=== PATIENT | female | born 1970 | race Caucasian/White ===

== ENCOUNTER 2018-04-10 18:45 | Inpatient (IN) ==
--- NOTE | 2018-04-10 20:28 | ED ---
HPI General Chief Complaint: Psychiatric Symptoms Stated Complaint: Psych eval/Transfer Time Seen by Provider: 04/10/18 19:21 Source: patient, EMS and other Mode of arrival: EMS Limitations: no limitations History of Present Illness HPI Narrative: Patient is a 47-year-old female with history of PTSD, bipolar disorder, COPD, diabetes, who presents with complaint of suicidal ideation. She was admitted 5 weeks ago after an intentional overdose on her lithium. She presented to an outside facility today with complaint of suicidal ideation. They obtained a CBC, CMP, alcohol level, UDS, acetaminophen and salicylate levels all of which were unremarkable. She was then sent here to be seen by psychiatry. No chest pain, dyspnea, abdominal pain, fever, chills, recent trauma, headache. No numbness, weakness. She does admit to chronic pain in the L foot that is unchanged and began when she fractured it several years ago. complaint: Reports suicidal ideation and feels depressed Onset (ago): day(s) Duration: constant History of same: Yes Relieving factors: none Exacerbating factors: none Context: Reports recent drug abuse and not taking psychiatric medications Associated psychiatric symptoms: Reports depression and suicidal ideation Associated symptoms: Reports denies other symptoms Treatments prior to arrival: Reports placed on mental health hold If self harm: admits thoughts of self harm and has plan Related Data Home Medications Medication Instructions Recorded Confirmed albuterol sulfate [Ventolin HFA] 2 puff INHALATION Q6H PRN 04/10/18 04/10/18 gabapentin 300 mg PO TID 04/10/18 04/10/18 lamotrigine [Lamictal] 150 mg PO HS 04/10/18 04/10/18 olanzapine [Zyprexa] 20 mg PO DAILY 04/10/18 04/10/18 paroxetine HCl [Paxil] 30 mg PO DAILY 04/10/18 04/10/18 saxagliptin [Onglyza] mg PO DAILY 04/10/18 Allergies Allergy/AdvReac Type Severity Reaction Status Date / Time aspirin Allergy Mild VOMITED Unverified 01/20/17 20:58 BLOOD Review of Systems ROS: all other systems reviewed are negative [facility] Medical History Medical History Asthma (Acute) Bipolar 1 disorder (Acute) Borderline personality disorder (Acute) COPD (chronic obstructive pulmonary disease) (Acute) Diabetes (Acute) PTSD (post-traumatic stress disorder) (Acute) Suicidal behavior with attempted self-injury (Acute) Surgical History Surgical History H/O rotator cuff surgery (Acute) H/O tubal ligation (Acute) Social History Social History Substance History: Active Abuse Smoking Status: Current every day smoker Tobacco Type: Cigarettes How Often Do You Have a Drink Containing Alcohol: Monthly or less Recent Travel in [facility] within the Last 8 Weeks: No Recent Out of Country Travel within the Last 8 Weeks: No Substance Abuse Detail Marijuana: Substance Use Status: Active Route Used Substance Abuse: Inhalation Crack/Cocaine: Substance Use Status: Active Route Used Substance Abuse: Inhalation Immunization History Tetanus Immunization: <5 Years Exam Narrative Exam Narrative: GENERAL: Well-appearing female that appears older than stated age SKIN: Focused skin assessment warm/dry. No rashes. HEAD: Atraumatic. Normocephalic. EYES: Pupils equal and round. No scleral icterus. No injection or drainage. ENT: No nasal bleeding or discharge. Mucous membranes pink and moist. NECK: Trachea midline. No JVD. CARDIOVASCULAR: Regular rate and rhythm. No murmur appreciated. Normal cap refill. Intact and equal peripheral pulses. RESPIRATORY: No accessory muscle use. Clear to auscultation. Breath sounds equal bilaterally. GASTROINTESTINAL: Abdomen soft, non-tender, nondistended. Hepatic and splenic margins not palpable. MUSCULOSKELETAL: No obvious deformities. No clubbing. No cyanosis. No edema. NEUROLOGICAL: Awake and alert. No obvious cranial nerve deficits. Motor within normal limits. Normal sensation. No ataxia. Normal speech. PSYCHIATRIC: Appropriate mood and affect; insight and judgment normal. Course Initial Documented Vital Signs Temperature 97.9 F 04/10/18 19:27 Pulse Rate 62 04/10/18 19:27 Respiratory Rate 14 04/10/18 19:27 Blood Pressure 97/53 L 04/10/18 19:27 Pulse Oximetry 97 04/10/18 19:27 Last Documented Vital Signs Temperature 97.9 F 04/10/18 19:27 Pulse Rate 62 04/10/18 19:27 Respiratory Rate 14 04/10/18 19:27 Blood Pressure 97/53 L 04/10/18 19:27 Pulse Oximetry 97 11/03/18 19:27 Medical Decision Making MDM Narrative Medical decision making narrative: Patient is a 47-year-old female transferred here for suicidal ideation under a Champion act. Most of the screening labs were done at the outside facility but the lithium was not done. Her lithium level was not high and that she has been medically cleared. She is awaiting psychiatric screening. Medical Screen Exam Complete: Yes Emergency Medical Condition: Yes Differential Diagnosis Differential Diagnosis: Differential diagnosis includes but is not limited to worsening depression, suicidal ideation, . Medical Records Medical records reviewed: Yes I reviewed the patient's medical records. Lab Data Lab results reviewed: Yes I reviewed the patient's lab results. POC Results POC Urine Results Negative Lab Results 04/10/18 Range/Units 19:40 Dequincy 0.2 L (0.5-1.5) meq/L Discharge Plan Discharge Disposition Patient Disposition: 30 Still Patient Discharge Condition Condition: Stable Discharge Details Diagnosis: Suicidal ideation Physicians Team ED Provider: Leela Champion Primary Care Provider: UNKNOWN, Rxs /Orders / Referrals /Forms Prescriptions: No Action lamotrigine [Lamictal] 150 mg Tablet 150 mg PO HS RF: 0 paroxetine HCl [Paxil] 30 mg Tablet 30 mg PO DAILY RF: 0 gabapentin 300 mg Capsule 300 mg PO TID RF: 0 albuterol sulfate [Ventolin HFA] 90 mcg/actuation Hfa Aerosol Inhaler 2 puff INHALATION Q6H PRN (Reason: Shortness Of Breath) RF: 0 saxagliptin [Onglyza] 2.5 mg Tablet PO DAILY RF: 0 olanzapine [Zyprexa] 20 mg Tablet 20 mg PO DAILY RF: 0 Status ED Status: Medically Cleared
[2018-04-10] MEDS ORDERED: Non-Formulary Drug (Albuterol Sulfate 2 PUFF) INHALATION PRN (22:37)
--- NOTE | 2018-04-11 10:26 | P.HPPSY ---
Provisional Diagnosis Admission Date: April 10, 2018 18:45 Witt I.: Bipolar depression, PTSD Witt II.: Borderline personality disorder Competence Certification of Person's Competence To Provide Express and Informed Consent I have personally examined Nita De Jesus, a [facility] on, April 11, 2018 1015. Express and informed consent means consent voluntarily given in writing, by a competent person, after sufficient explanation and disclosure of the subject matter involved to enable the person to make a knowing and willful decision without any element of force, fraud, deceit, duress, or other form of constraint or coercion. This person is 18 years of age or older, is not now known to be incompetent to consent to treatment with a guardian advocate, and does not have a health care surrogate or proxy currently making medical treatment decisions. I have found this person to be one of the following: [x] Competent to provide express and informed consent, as defined above, for voluntary admission to this facility and is competent to provide express and informed consent for treatment. He/she has the consistent capacity to make well reasoned, willful, and knowing decisions concerning his or her medical or mental health treatment. The person fully and consistently understands the purpose of the admission for examination/placement and is fully capable of personally exercising all rights assured [place] Incompetent to provide express and informed consent to voluntary admission, and this is incompetent to provide express and informed consent to treatment. The person must be transferred to involuntary status and a petition for a guardian advocate filed with the Circuit Court. [] Refusing to provide express and informed consent to voluntary admission but is competent to provide express and informed consent for treatment. The person must be discharged or transferred to involuntary status. Form shall be completed within 24 hours of a person's arrival at the receiving facility and filed in the clinical record of each person: 1. Admitted on a voluntary basis 2. Permitted to provide express and informed consent to his/her own treatment 3. Allowed to transfer from involuntary to voluntary status 4. Prior to permitting a person to consent to his or her own treatment after having been previously found incompetent to consent to treatment. History of Present Illness Capacity: Has capacity History of Present Illness: The patient is a 47-year-old woman, domiciled in [place] with a friend, , mother of 2 kids, unemployed, on SSI, with an extensive psychiatric history of bipolar disorder, PTSD, borderline personality disorder, cocaine and alcohol use disorder, numerous psychiatric hospitalizations, suicidal attempts, self-cutting behavior, noncompliant with medications, she is not in psychotropics at the moment, last hospitalization was a month ago for 5 weeks after overdosing with lithium, medical history of diabetes and COPD, who presents with complaint of suicidal ideation. She was transferred to [place] through the transfer center from [facility]. They obtained a CBC, CMP, alcohol level, UDS, acetaminophen and salicylate levels all of which were unremarkable. Chart was reviewed. The case was discussed with nursing charge. On my psychiatric evaluation the patient presents calm, superficially cooperative, very irritable. She reports that she has her best friend to take her to the hospital 2 days ago because she was feeling urges to kill herself. The patient reports that she has not been taking her medication for about a month now, but she has been using cocaine and alcohol sometimes, and in the last week she has been having persistent intrusive thoughts of hurting herself. The patient reports that she has been depressed, with frequent mood swings, increased sensitivity to criticism and rejection, fragile and vulnerable, and this is how I feel when I hurt myself, this is how I felt 5 weeks ago when I overdose with lithium. At this moment the patient reports suicidal ideation, she does not have any specific plan. She is interested in reestablishing contact with outpatient doctor and restarting her medications. The patient is logical, goal oriented, linear, oriented x3, without attention deficit, without fluctuation of consciousness. PPHx: psychiatric history of bipolar disorder, PTSD, borderline personality disorder, cocaine and alcohol use disorder, numerous psychiatric hospitalizations, suicidal attempts, self-cutting behavior, noncompliant with medications, she is not in psychotropics at the moment, last hospitalization was a month ago for 5 weeks after overdosing with lithium, PMHx: medical history of diabetes and COPD Substance Hx : Reports daily use of cocaine, occasional use of alcohol Family Hx: Her grandmother and an uncle have bipolar disease Social Hx: The patient was born and raised in [place]; she lives in [place] with a friend, , mother of 2 kids, unemployed, supported by [facility] . Review of Systems All other systems reviewed negative except as stated in HPI Psychiatric: Reports depression, Reports difficulty concentrating, Reports hopelessness, Reports irritability, Reports lack of enjoyment, Reports thoughts of hurting/killing yourself PMFSH - History History Provided By: Patient - Medical History Medical History: Medical History (Last Reviewed 04/10/18 @ 20:25 by Leela Champion MD) Asthma Bipolar 1 disorder Borderline personality disorder COPD (chronic obstructive pulmonary disease) Diabetes PTSD (post-traumatic stress disorder) Suicidal behavior with attempted self-injury - Surgical History Surgical History: Surgical History (Last Reviewed 04/10/18 @ 20:25 by Leela Champion MD) H/O rotator cuff surgery H/O tubal ligation - Tobacco History Tobacco Use In Past 30 Days: Yes Smoking Status: Current every day smoker Tobacco Type: Cigarettes - Alcohol History How Often Do You Have a Drink Containing Alcohol: Monthly or less - Substance Use History Substance History: Active Abuse - Substance Use Type Marijuana Status: Active Route Used: By Mouth, Inhalation Reason for Use: Calm Down, Feels Good Crack/Cocaine Status: Early Remission Route Used: Inhalation Reason for Use: Get High - Travel History Recent Travel in the [place] Within the Last 8 Weeks: No Recent Travel Out of the Country Within the Last 8 Weeks: No - Immunization History Tetanus Immunization: <5 Years Medications and Allergies Active Medications: Active Medications Al Hydrox/Mg Hydrox/Simethicone (Mag-Al Plus Susp Liq) 30 ml PO Q6H PRN PRN Reason: DYSPEPSIA Al Hydroxide/Mg Hydroxide (Milk Of Magnesia Liq) 30 ml PO Q12H PRN PRN Reason: Mild Constipation Bisacodyl (Dulcolax Supp) 10 mg RECTAL DAILY PRN PRN Reason: SEVERE CONSITIPATION Flumazenil (Romazecon Inj) 0.2 mg IV.PUSH Q1M PRN PRN Reason: OVERSEDATION Gabapentin (Neurontin) 300 mg PO TID MARIA TERESA Haloperidol Lactate (Haldol Inj) 1 mg IV.PUSH Q15M PRN PRN Reason: for severe agitation Lactulose (Lactulose Liq) 30 ml PO DAILY PRN PRN Reason: SEVERE CONSITIPATION Lamotrigine (Lamictal) 150 mg PO HS MARIA TERESA Lorazepam (Ativan) 1 mg PO Q4H PRN PRN Reason: for CIWA 8-10 Lorazepam (Ativan Inj) 2 mg IV.PUSH Q2H PRN PRN Reason: for CIWA 11-14 Lorazepam (Ativan Inj) 2 mg IV.PUSH Q1H PRN PRN Reason: for CIWA 15-20 Lorazepam (Ativan Inj) 2 mg IV.PUSH Q15M PRN PRN Reason: for CIWA > 20 Lorazepam (Ativan Inj) 1 mg IV.PUSH Q4H PRN PRN Reason: for CIWA 8-10 Lorazepam (Ativan) 2 mg PO Q2H PRN PRN Reason: for CIWA 11-14 Non-Formulary Medication (Olanzapine [Zyprexa]) 20 mg PO DAILY MARIA TERESA Non-Formulary Medication (Paroxetine Hcl [Paxil]) 30 mg PO DAILY MARIA TERESA Non-Formulary Medication (Albuterol Sulfate) 2 puff INHALATION Q6H PRN PRN Reason: Shortness Of Breath Olanzapine (Zyprexa) 2.5 mg PO BID MARIA TERESA Senna/Docusate Sodium (Hyacinth-Colace) 1 tab PO BID MAIRA TERESA Sennosides (Senokot) 17.2 mg PO Q12H PRN PRN Reason: Moderate Constipation Allergies Allergy/AdvReac Type Severity Reaction Status Date / Time aspirin Allergy Mild VOMITED Unverified 04/11/18 01:41 EST BLOOD Home Medications Medication Instructions Recorded Confirmed Type albuterol sulfate [Ventolin HFA] 2 puff INHALATION Q6H PRN 04/10/18 04/10/18 History gabapentin 300 mg PO TID 04/10/18 04/10/18 History lamotrigine [Lamictal] 150 mg PO HS 04/10/18 04/10/18 History olanzapine [Zyprexa] 20 mg PO DAILY 04/10/18 04/10/18 History paroxetine HCl [Paxil] 30 mg PO DAILY 04/10/18 04/10/18 History saxagliptin [Onglyza] mg PO DAILY 04/10/18 History Results - Labs Labs: Laboratory Results - last 24 hr 04/10/18 19:40 Blanche 0.2 L Exam Vital signs: Vital Signs 04/10/18 19:27 04/10/18 22:25 04/11/18 02:07 Temperature 97.9 F 97.5 F L 97.8 F Pulse Rate 62 75 83 Respiratory Rate 14 18 18 Blood Pressure 97/53 L 112/58 L 114/69 Pulse Oximetry 97 96 95 04/11/18 06:09 Temperature Pulse Rate 85 Respiratory Rate 18 Blood Pressure 114/69 Pulse Oximetry 96 Intake & Output 04/10/18 04/11/18 04/11/18 19:59 06:59 18:59 Weight Narrative: No tremors, no EPS, no withdrawal symptoms, no stiffness, no gait disturbance, no catatonia present - Constitutional mild distress - Routine HEENT Exam Head: Present: normocephalic, atraumatic Eye: Present: EOMI, PERRL ENT: Present: mucous membranes moist Mental Status Examination Appearance: Appropriate Consciousness: Alert Orientation: x4 Motor Activity: Normal gait Speech: Unremarkable Language: Adequate Fund of Knowledge: Adequate Attention and Concentration: Adequate Memory: Unremarkable Mood: Sad Affect: Sad Thought Process & Associations: Intact Thought Content: Appropriate Hallucination Type: None Delusion Type: None Suicidal Ideation: Yes Suicidal Plan: No Suicidal Intention: No Homicidal Ideation: No Homicidal Plan: No Homicidal Intention: No Insight: Poor Judgment: Poor Assessment and Plan - Assessment (1) Bipolar depression Code(s): F31.30 - Bipolar disorder, current episode depressed, mild or moderate severity, unspecified Status: Acute - Plan Plan: On psychiatric evaluation today the patient presents with objective and subjective evidence of depressive symptoms, patient reports feeling hopeless, helpless, with increased sensitivity to rejection and criticism, with mood swings, irritability and persistent suicidal ideation at least for the last week , no specific plan, in the context of noncompliance of medications and multiple psychosocial stressors. The patient has an extensive psychiatric history of bipolar disorder, borderline personality disorder, PTSD, over 40 hospitalizations, multiple suicidal attempts, self cutting behavior, noncompliant medications, and at this moment she has an elevated risk of danger to self. She will be admitted in psychiatry voluntarily for reestablishing psychiatric care and restart her medications. I will start Lamictal 25 mg twice daily, Zyprexa 2.5 mg twice daily. Patient will be in [facility] protocol. patient will be transferred to 2600 unit. Extensive support, motivational psych education provided. Justification for Continued Inpatient Stay: Patient is for admission
[2018-04-11] MEDS ORDERED: Aluminum/Magnesium/Simethacone Susp 30 ML UDC PO PRN (11:00)
[2018-04-11] MEDS ORDERED: Haloperidol Inj 5 MG/ML Ampul IV.PUSH PRN (11:00)
[2018-04-11] MEDS ORDERED: LORazepam 1 MG Tablet PO PRN (11:00)
[2018-04-11] MEDS ORDERED: Bisacodyl 10 MG Supp RECTAL PRN (12:00)
[2018-04-11] MEDS: Gabapentin 300 MG Capsule PO SCH ×3 (13:55→17:06)
[2018-04-11] MEDS: lamoTRIgine 25 MG TABLET PO SCH ×2 (13:55→21:01)
[2018-04-11] MEDS ORDERED: lamoTRIgine 100 MG Tablet PO SCH (21:00)
[2018-04-11] MEDS: OLANZapine 2.5 MG Tablet PO SCH (21:01)
[2018-04-11] MEDS: Senna/Docusate Sodium 8.6/50 MG Tablet PO SCH (21:02)
[2018-04-12 07:20] LABS: Calcium 8.6 mg/dL (8.5-10.1); Carbon Dioxide 27.3 meq/L (21.0-32.0)
[2018-04-12 07:23] LABS: Chol/HDL Ratio 5.43 Ratio; HDL Cholesterol 34.2 mg/dL (40.0-60.0)
[2018-04-12] MEDS: OLANZapine 2.5 MG Tablet PO SCH ×2 (08:52→21:31)
[2018-04-12] MEDS: lamoTRIgine 25 MG TABLET PO SCH ×2 (08:53→21:31)
[2018-04-12] MEDS: Gabapentin 300 MG Capsule PO SCH ×3 (08:54→17:36)
[2018-04-12] MEDS: Senna/Docusate Sodium 8.6/50 MG Tablet PO SCH ×2 (08:55→21:33)
[2018-04-12] MEDS ORDERED: Acetaminophen 325 MG Tablet PO PRN (16:54)
--- NOTE | 2018-04-12 17:06 | P.PNPSY ---
Subjective Remarks: Patient initially admitted by Dr. Valladares's H&P reviewed and agreed with. Patient signed voluntarily. I reviewed the patient's initial inpatient psychiatric template orders. I have discontinued the ciwa protocol. With nurse Krystle, patient appears to have had contact with me over 10 years ago as an inpatient at [facility]. She lived up in the [facility] for a while then returned back down here. Patient is giving a contradictory conflicting history related to her lithium overdose time in the hospital living situation since then. She does states she may have a place to live with somebody is going to pay her rent and pay her food. She wants her medications. She also did state that she took a large amount of ecstasy alcohol and marijuana within the past week or so before coming to the hospital. I am concerned that there may be a significant amount of manipulation with this lady towards the end of the session she started talking about voices in her head also. But she also has been noncompliant with medication follow-up and mental health follow-up. For now though we will continue to observe her we will increase her Zyprexa to 15 mg at at bedtime and as mentioned discontinue all the Ativan orders Review of Systems All other systems reviewed negative except as stated in HPI Mental Status Examination Appearance: Appropriate Consciousness: Alert Orientation: x4 Motor Activity: Normal gait Speech: Unremarkable Language: Adequate Fund of Knowledge: Adequate Attention and Concentration: Adequate Memory: Unremarkable Mood: Sad, Other (Entitled) Affect: Other (Slight increased range and intensity) Thought Process & Associations: Intact, Disorganized (Mildly) Thought Content: Appropriate Hallucination Type: None Delusion Type: None Suicidal Ideation: Yes (Patient vague and ambiguous) Suicidal Plan: No Suicidal Intention: No Homicidal Ideation: No Homicidal Plan: No Homicidal Intention: No Insight: Poor Judgment: Poor Assessment and Plan - Assessment (1) Bipolar depression Code(s): F31.30 - Bipolar disorder, current episode depressed, mild or moderate severity, unspecified Status: Acute - Plan Plan: Patient remains somewhat depressed vague auditory hallucinations as well as a marked degree of manipulation with this also. We will discontinue the ciwa protocol. For now continue treatment and observation Justification for Continued Inpatient Stay: At this time patient would decompensate a place to a lower level of care Discharge Planning: To be determined patient states she has a place to stay with people who will help her with her expenses Request Healthcare Surrogate/Guardian Advocate?: No
[2018-04-12] MEDS: OLANZapine 15 MG Tablet PO SCH (21:31)
[2018-04-13] MEDS: lamoTRIgine 25 MG TABLET PO SCH ×2 (08:48→21:41)
[2018-04-13] MEDS: Gabapentin 300 MG Capsule PO SCH ×3 (08:48→17:30)
[2018-04-13] MEDS: OLANZapine 2.5 MG Tablet PO SCH ×2 (08:48→21:41)
[2018-04-13] MEDS: Senna/Docusate Sodium 8.6/50 MG Tablet PO SCH ×2 (08:50→21:42)
--- NOTE | 2018-04-13 13:07 | P.PNPSY ---
Subjective Remarks: Patient is seen in her room with nurse Krystle, chart reviewed, patient compliant medication. Patient states she slept better last night is happy to be getting back on her Zyprexa. Today she denies suicidality homicidality voices or visions. States she does have a place to stay with friends until May when she may move in with another friend's mother. Patient is showing some insight into her need to maintain absolute sobriety to help her address her mental health issues also. Patient continues to improve consider discharge tomorrow with follow-up through [facility] Review of Systems All other systems reviewed negative except as stated in HPI Mental Status Examination Appearance: Appropriate Consciousness: Alert Orientation: x4 Motor Activity: Normal gait Speech: Unremarkable Language: Adequate Fund of Knowledge: Adequate Attention and Concentration: Adequate Memory: Unremarkable Mood: Sad Affect: Other (Slight increased range and intensity) Thought Process & Associations: Intact Thought Content: Appropriate Hallucination Type: None Delusion Type: None Suicidal Ideation: Yes (Denies) Suicidal Plan: No Suicidal Intention: No Homicidal Ideation: No Homicidal Plan: No Homicidal Intention: No Insight: Fair Judgment: Adequate Assessment and Plan - Assessment (1) Bipolar depression Code(s): F31.30 - Bipolar disorder, current episode depressed, mild or moderate severity, unspecified Status: Acute - Plan Plan: Patient improving now denies suicidality or voices, showing some insight into her need for sobriety. The patient continues to improve consider discharge tomorrow Justification for Continued Inpatient Stay: Patient continues to improve consider discharge tomorrow Discharge Planning: Possible discharge tomorrow Request Healthcare Surrogate/Guardian Advocate?: No
[2018-04-13 17:07] VITALS: O2SAT 98
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
[2018-04-13] MEDS ORDERED: Dextrose 50% in Water 50 ML Vial IV.PUSH PRN (19:29)
[2018-04-13] MEDS: OLANZapine 15 MG Tablet PO SCH (21:41)
[2018-04-13] MEDS: Insulin NovoLOG Aspart Correctional Sugar Inj SQ SCH (22:22)
[2018-04-14 05:57] VITALS: BP 107/53; PULSE 65; RESP 15; TEMP 97.4
[2018-04-14] MEDS: Gabapentin 300 MG Capsule PO SCH ×2 (08:13→12:16)
[2018-04-14] MEDS: lamoTRIgine 25 MG TABLET PO SCH (08:13)
[2018-04-14] MEDS: Senna/Docusate Sodium 8.6/50 MG Tablet PO SCH (08:14)
[2018-04-14] MEDS: OLANZapine 2.5 MG Tablet PO SCH (08:14)
[2018-04-14] MEDS: Insulin NovoLOG Aspart Correctional Sugar Inj SQ SCH ×2 (08:17→12:16)
--- NOTE | 2018-04-14 11:09 | P.PNIM ---
Subjective Interval history: This patient is a 47-year-old female with an extensive psychiatric history including bipolar disorder, posttraumatic stress disorder, borderline personality disorder, cocaine and alcohol use disorder, numerous psychiatric hospitalizations and suicide attempts. Patient has a history of being noncompliant with her medications. She was admitted under the psychiatric service for suicidal ideation. She is currently under their service and receiving treatment. Currently the patient is a depressed and receiving treatment for depression. I was called by the psychiatric service for evaluation of the patient with elevated blood sugars. Past medical history bipolar disorder, PTSD, borderline personality disorder, cocaine and alcohol abuse, numerous psychiatric hospitalizations and suicide attempts. Family history significant for coronary artery disease, and diabetes Surgical history patient had a tubal ligation and a right rotator cuff repair in the past Social history the patient admits to an extensive history of tobacco use for nearly 30 years 1 pack/day, she continues to drink alcohol, and she says that she uses any drugs she can get her hand on, her drug of choice is crack cocaine. 11-7 PATIENT STATES SHE IS GOING TO REHAB TODAY IN [place] [facility] RN AND PT Physical Exam Vital signs: Vital Signs 04/13/18 17:06 04/14/18 05:57 Temperature 97.6 F 97.4 F L Pulse Rate 59 L 65 Respiratory Rate 16 15 Blood Pressure 117/63 107/53 L Pulse Oximetry 98 Intake & Output 04/13/18 04/14/18 04/14/18 18:59 06:59 18:59 Intake Total 360 / 360 240 / 240 Balance 360 / 360 240 / 240 Intake: Oral 360 / 360 240 / 240 Other: Date of Last Bowel Movement 04/12/18 Narrative: General patient in no acute distress HEENT extraocular movements are intact, poor dentition Cardiovascular S1-S2 audible, RRR, no murmurs rubs or gallops Respiratory clear to auscultation bilaterally Abdomen soft, nontender, nondistended, normal bowel sounds Extremities no edema 2+ distal pulses in bilateral upper and lower extremities Neuro cranial nerves II through XII intact Results - Labs CBC & Chem 7: 04/12/18 05:40 Laboratory Results - last 24 hr 04/13/18 04/13/18 04/14/18 15:48 21:39 06:43 POC Glucose 162 H 193 H 230 H Assessment and Plan - Plan DM TYPE 2 CONTINUE SLIDING SCALE COVERAGE BIPOLAR WILL DEFER TO PSYCHIATRY COCAINE ABUSE- RECOMMEND COCAINE CESSATION TOBACCO ABUSE-RECOMMEND SMOKING CESSATION Code Status: FULL CODE Discussed Condition With: [facility] RN AND PT Discharge Planning: MEDICALLY CLEARED FOR DISCHARGE
--- NOTE | 2018-04-14 11:50 | P.DSPSY ---
Psychiatry Discharge Summary Inpatient Psychiatric care?: Yes Advance Directives: Yes Mental Health Advance Directive: No Health Care Proxy: No - Admission Admission Date: April 11, 2018 10:11 - Admission Diagnosis (1) Suicidal ideation Code(s): R45.851 - Suicidal ideations (2) Polysubstance abuse Code(s): F19.10 - Other psychoactive substance abuse, uncomplicated Brief History: The patient is a 47-year-old woman, domiciled in [place] with a friend, , mother of 2 kids, unemployed, on SSI, with an extensive psychiatric history of bipolar disorder, PTSD, borderline personality disorder, cocaine and alcohol use disorder, numerous psychiatric hospitalizations, suicidal attempts, self-cutting behavior, noncompliant with medications, she is not in psychotropics at the moment, last hospitalization was a month ago for 5 weeks after overdosing with lithium, medical history of diabetes and COPD, who presents with complaint of suicidal ideation. She was transferred to [facility] through the transfer center from [facility]. They obtained a CBC, CMP, alcohol level, UDS, acetaminophen and salicylate levels all of which were unremarkable. Chart was reviewed. The case was discussed with nursing charge. On my psychiatric evaluation the patient presents calm, superficially cooperative, very irritable. She reports that she has her best friend to take her to the hospital 2 days ago because she was feeling urges to kill herself. The patient reports that she has not been taking her medication for about a month now, but she has been using cocaine and alcohol sometimes, and in the last week she has been having persistent intrusive thoughts of hurting herself. The patient reports that she has been depressed, with frequent mood swings, increased sensitivity to criticism and rejection, fragile and vulnerable, and this is how I feel when I hurt myself, this is how I felt 5 weeks ago when I overdose with lithium. At this moment the patient reports suicidal ideation, she does not have any specific plan. She is interested in reestablishing contact with outpatient doctor and restarting her medications. The patient is logical, goal oriented, linear, oriented x3, without attention deficit, without fluctuation of consciousness. PPHx: psychiatric history of bipolar disorder, PTSD, borderline personality disorder, cocaine and alcohol use disorder, numerous psychiatric hospitalizations, suicidal attempts, self-cutting behavior, noncompliant with medications, she is not in psychotropics at the moment, last hospitalization was a month ago for 5 weeks after overdosing with lithium, PMHx: medical history of diabetes and COPD Substance Hx : Reports daily use of cocaine, occasional use of alcohol Family Hx: Her grandmother and an uncle have bipolar disease Social Hx: The patient was born and raised in [place]; she lives in [place] with a friend, , mother of 2 kids, unemployed, supported by [facility] . Tobacco Use In Past 30 Days: Yes How Often Do You Have a Drink Containing Alcohol: Monthly or less Hospital Course: Patient's hospital course was uneventful, with depression lifted she today denies suicidality or voices. He is quite excited about being accepted in a dual diagnosis program through [facility]. She realizes that this may be 1 of the last opportunity she has to recover and gain sufficient function to live independently. Thus patient will be discharged today to that facility with Rx times 1 month follow through with medical services and dual diagnosis services through that facility - Discharge Discharge Date: 04/14/18 - Discharge Diagnosis (1) Bipolar depression Diagnosis: Principal Code(s): F31.30 - Bipolar disorder, current episode depressed, mild or moderate severity, unspecified Status: Acute (2) Polysubstance abuse Diagnosis: Secondary Code(s): F19.10 - Other psychoactive substance abuse, uncomplicated Status: Acute Discharge Disposition: Inpatient Rehab Unit - Discharge Instructions Discharge Diet: Regular Diet Activities You Can Perform: Regular- No Restrictions - Discharge Time > 30 minutes Mental Status Examination Appearance: Appropriate Consciousness: Alert Orientation: x4 Motor Activity: Normal gait Speech: Unremarkable Language: Adequate Fund of Knowledge: Adequate Attention and Concentration: Adequate Memory: Unremarkable Mood: Sad Affect: Other (Slight increased range and intensity) Thought Process & Associations: Intact Thought Content: Appropriate Hallucination Type: None Delusion Type: None Suicidal Ideation: Yes (Denies) Suicidal Plan: No Suicidal Intention: No Homicidal Ideation: No Homicidal Plan: No Homicidal Intention: No Insight: Fair Judgment: Adequate Discharge/Advance Care Plan - Results Vital Signs: Last Vital Signs Temp 97.4 F L 04/14/18 05:57 Pulse 65 04/14/18 05:57 Resp 15 04/14/18 05:57 BP 107/53 L 04/14/18 05:57 Pulse Ox 98 04/13/18 17:06 Lab Results: Abnormal Lab Results 04/13/18 04/13/18 04/14/18 15:48 21:39 06:43 POC Glucose 162 H 193 H 230 H 04/14/18 11:19 POC Glucose 97 Laboratory Results Hemoglobin A1c 6.0 % (4.3-6.0) 04/12/18 05:40 Triglycerides 194 mg/dL (42-150) H 04/12/18 05:40 Cholesterol 186 mg/dL (120-200) 04/12/18 05:40 LDL Cholesterol, Calc 113 mg/dL (0-99) H 04/12/18 05:40 HDL Cholesterol 34.2 mg/dL (40.0-60.0) L 04/12/18 05:40 [place] 0.2 meq/L (0.5-1.5) L 04/10/18 19:40 Summary of Procedures: None done Pending Results: None - Medications Number of antipsychotic medications at discharge: 1 - Discharge Care Plan Goals to Promote Your Health: * To prevent worsening of your condition and complications * To maintain your health at the optimal level Directions to Meet Your Goals: Take your medications as prescribed Follow your dietary instruction Follow activity as directed Keep your appointments as scheduled Take your immunizations and boosters as scheduled If your symptoms worsen call your PCP, if no PCP go to Urgent Care Center or Emergency Room For 29/12 questions related to your inpatient stay or results of tests pending at discharge, please contact Dr. Georgi Mauro MD at Smoking is Dangerous to Your Health. Avoid second hand smoking
== END 2018-04-14 14:00 | disposition short-term general hospital (02) ==
LOC: NEDAMB 18:45 → NEDA 04-11 10:11 → H260 04-11 11:21
PROVIDERS: ADMIT Psychiatry & Neurology Psychiatry; ATTEND Psychiatry & Neurology Psychiatry